=== PATIENT | female | born 1975 | race Caucasian/White ===

== ENCOUNTER 2018-08-18 09:17 | Emergency (ER) | payer MEDICAID ==
[~2018-08-18] VITALS: Ht 157.5 cm; Wt 74.5 kg
[~2018-08-18 09:17] MED LIST: ACET325T33 PO; IBUP-1542 PO
[2018-08-18 09:23] VITALS: BP 115/83; PULSE 74; RESP 19; Ht 157.5 cm; Wt 74.5 kg
[2018-08-18] MEDS ORDERED: KETOROLAC 30 MG INJ IM STA (10:12)
[2018-08-18] MEDS ORDERED: NAPR-985 PO (10:13)
[2018-08-18] MEDS ORDERED: CYCL10TA7 PO (10:13)
--- NOTE | 2018-08-18 10:14 | ERD ---
ER Documentation Chief Complaint Chief Complaint PRESSURE LIKE PAIN @ LEFT CHEST RADIATING TO THE NECK AND LEFTR SHOULDER HPI This is a 42-year-old woman complaining of left scalp and neck pain, muscle spasming, and states the pain radiates down to her left shoulder and arm and to the left anterior chest. The pain is associated with paresthesias to the left side of the face and left hand. She states overall the symptoms have been present for the last 2 weeks and have been intermittent but daily. She denies slurred speech, no headache or blurry vision, no loss of consciousness, no exertional pain, no shortness of breath, no fevers or chills, no cough ROS All systems reviewed and are negative except as per history of present illness. Medications Home Meds Active Scripts Cyclobenzaprine Hcl* (Cyclobenzaprine Hcl*) 10 Mg Tablet, 10 MG PO TID PRN for MUSCLE SPASMS, #15 TAB Prov:JOHNATHAN DA SILVA MD 08/18/18 Naproxen* (Naprosyn*) 500 Mg Tablet, 500 MG PO BID PRN for PAIN AND/OR INFLAMMATION, #30 TAB Prov:JOHNATHAN DA SILVA MD 08/18/18 Ibuprofen* (Motrin*) 600 Mg Tab, 600 MG PO Q8, #20 TAB Prov:GUNNAR AVILES DO 02/26/16 Acetaminophen* (Tylenol*) 325 Mg Tablet, 2 TAB PO Q6 PRN for PAIN AND OR ELEVATED TEMP, #20 TAB Prov:GUNNAR AVILES DO 02/26/16 Allergies Allergies: Coded Allergies: codeine (Verified Allergy, Intermediate, RASH, 02/26/16) PMhx/Soc History of Surgery: Yes (tonsilectomy,tubal ligation) Anesthesia Reaction: No Hx Neurological Disorder: No Hx Respiratory Disorders: No Hx Cardiac Disorders: No Hx Psychiatric Problems: No Hx Miscellaneous Medical Probl: No Hx Alcohol Use: No Hx Substance Use: No Hx Tobacco Use: No FmHx Family History: No diabetes Physical Exam Vitals Vital Signs Date Temp Pulse Resp B/P (MAP) Pulse Ox O2 O2 Flow FiO2 Time Delivery Rate 08/18/18 98.2 74 19 115/83 99 09:23 (94) Physical Exam Const: No acute distress, afebrile Head: Atraumatic Eyes: Normal Conjunctiva ENT: Normal External Ears, Nose and Mouth. Neck: Full range of motion. No meningismus. Resp: Clear to auscultation bilaterally Cardio: Regular rate and rhythm, no murmurs Abd: Soft, non tender, non distended. Normal bowel sounds Skin: No petechiae or rashes Back: No midline or flank tenderness Ext: No cyanosis, or edema Neur: Awake and alert x3, no focal deficits or facial asymmetry Psych: Normal Mood and Affect Results 24 hrs Current Medications Medications Dose Sig/Meri Start Time Status Last (Trade) Ordered Route PRN Stop Time Admin Dose Reason Admin Ketorolac 30 mg ONCE STAT 08/18/18 DC 08/18/18 Tromethamine IM 10:12 10:21 (Toradol) 08/18/18 10:13 Procedures/MDM IV line was established patient was placed on quality assurance monitor final rhythm strip revealed a sinus rhythm at about 70 bpm with upright P and T waves. Patient was afebrile EKG performed, read by me revealed a normal sinus rhythm at 70 bpm, normal axis, narrow QRS complex, no concerning ST elevations or depressions noted. I administered Toradol 30 mg IM x1. Differential diagnoses considered, included but not limited to acute coronary syndrome, pulmonary embolism, aortic dissection, abdominal aortic aneurysm, sepsis, stroke, meningitis, encephalitis, pneumonia, appendicitis, cholecystitis, bowel obstruction, pyelonephritis, nephrolithiasis, cystitis, as well as metabolic, hematologic, and electrolyte abnormalities. As well as abscess, cellulitis, fractures, and dislocations. Patient feels much better at this time, and vital signs are normal, symptoms have improved. I did give strict instructions to return to the ED if symptoms continue or worsen, patient will otherwise follow-up with primary care physician. Patient understood instructions and agreed to plan. Disclaimer: Inadvertent spelling and grammatical errors are likely due to EHR/dictation software use and do not reflect on the overall quality of patient care. Also, please note that the electronic time recorded on this note does not necessarily reflect the actual time of the patient encounter. Departure Diagnosis: Primary Impression: Chest pain Chest pain type: unspecified Qualified Codes: R07.9 - Chest pain, un specified Additional Impression: Paresthesias Condition: Good Patient Instructions: Muscle Spasm, Paraesthesias JOHNATHAN DA SILVA MD August 18, 2018 10:14
== END 2018-08-18 10:31 | disposition home or self-care (01) ==
LOC: E/R 09:17
DX: R07.9 Chest pain, unspecified (principal); R20.2 Paresthesia of skin
CPT/HCPCS: 93005; 96372; J1885; Z7502